=== PATIENT | male | born 1965 | race Caucasian/White ===

== ENCOUNTER 2019-09-01 16:42 | Emergency (ER) | payer SELFPAY ==
[~2019-09-01] VITALS: Ht 177.8 cm; Wt 90.3 kg
[2019-09-01 18:59] VITALS: BP 119/92
== END 2019-09-01 19:45 | disposition home or self-care (01) ==
LOC: ER 16:42
DX: Z02.83 Encounter for blood-alcohol and blood-drug test (principal)

== ENCOUNTER 2024-04-28 15:05 | Inpatient (IN) | payer MEDICAID, OTHER ==
[~2024-04-28] VITALS: Ht 177.8 cm; Wt 84.7 kg
[2024-04-28 15:38] LABS: Basophils # (auto) 0.1 10 ^3/uL (0-0.2); Basophils % (auto) 0.9 % (0.0-2.0); Eosinophils # (auto) 0.3 10 ^3/uL (0-0.8); Eosinophils % (auto) 4.9 % (0.0-7.0); Hematocrit 24.2 % (41.0-53.0); Lymphocytes # (auto) 1.1 10 ^3/uL (0.4-5.4); Lymphocytes % (auto) 15.4 % (10.0-50.0); Mean Corpuscular Hgb Conc. 33.1 g/dL (32.0-36.0); Mean Corpuscular Volume 84.6 fL (80.0-100.0); Monocytes # (auto) 0.5 10 ^3/uL (0-1.3); Monocytes % (auto) 7.6 % (0.0-12.0); Neutrophils # (auto) 4.9 10 ^3/uL (1.6-8.6); Neutrophils % (auto) 71.2 % (37.0-80.0); Nucleated Red Blood Cells % 0.1 %; Platelet Count (auto) 181 10^3/uL (140-450); Red Blood Cells 2.86 10^6/uL (4.5-5.90); Red Cell Distribution Width 14.2 % (11.8-14.3); White Blood Cell 6.9 10^3/uL (4.4-10.8)
[2024-04-28 15:52] LABS: INR 1.23 (0.9-1.15); Partial Thromboplastin Time 30.3 SEC (24.5-34.5); Prothrombin Time 12.8 sec (9.3-11.8)
[2024-04-28 16:01] LABS: Alanine Aminotransferase 21 U/L (7-40); Albumin 3.9 g/dL (3.2-4.8); Alkaline Phosphatase 88 U/L (46-116); Anion Gap 11 (5-15); Aspartate Aminotransferase 15 U/L (13-40); Bilirubin, Total 0.3 mg/dL (0.2-1.0); Blood Urea Nitrogen 71 mg/dL (9-23); Calcium 7.3 mg/dL (8.7-10.4); Carbon Dioxide 18 mmol/L (20-30); Chloride 113 mmol/L (98-107); Glucose 128 mg/dL (74-106); Magnesium 2.4 mg/dL (1.6-2.6); Potassium 5.3 mmol/L (3.5-5.1); Sodium 142 mmol/L (136-145)
[2024-04-28 16:02] LABS: Total Protein 6.2 g/dL (5.7-8.2)
[2024-04-28] MEDS ORDERED: ASPirin 81 mg TAB PO ONE (16:45)
[2024-04-28 18:39] VITALS: PULSE 69; RESP 12; O2SAT 98
[2024-04-28] MEDS: ASPirin-EC 325mg tab PO ONE (18:59)
[2024-04-28 19:49] VITALS: PULSE 71; RESP 11; O2SAT 99
[2024-04-28] MEDS: cloNIDine HCL 0.1 MG TAB PO ONE (20:27)
[2024-04-29] VITALS (7 sets, daily range): BP systolic 137–168; BP diastolic 77–100; PULSE 62–76; RESP 17–18; TEMP 98–98.2; O2SAT 99–100
[2024-04-29] MEDS ORDERED: HYDROcodone-ACET 5/325MG TAB PO PRN
[2024-04-29] MEDS ORDERED: HYDROmorphone HCL 2 MG/ML VL/or syr IV PRN
[2024-04-29] MEDS ORDERED: ONDANSETRON HCL 4 MG/2 ML VIAL IV PRN
[2024-04-29 00:46] LABS: Urine Bacteria FEW /hpf (None Seen); Urine Blood 2+ /uL (Negative); Urine Clarity Clear (Clear); Urine Color Light-Yellow (Yellow); Urine Protein, UAD 3+ (Negative); Urine Specific Gravity 1.013 (1.001-1.035); Urine Urobilinogen Normal (Negative); Urine WBC 1 /hpf (0 - 3)
[2024-04-29] MEDS: SODIUM ZIRCONIUM CYCL 10 GM PAK PO ONE (00:49)
[2024-04-29 01:23] LABS: Creatinine, Urine 67.03 mg/dL (30.0-125.0)
[2024-04-29] MEDS: SODIUM CHLOR 0.9% PF (SALINE LOCK) 10ML VIAL/SYR IV SCH (06:20)
[2024-04-29 07:54] LABS: Basophils # (auto) 0.1 10 ^3/uL (0-0.2); Basophils % (auto) 1.2 % (0.0-2.0); Eosinophils # (auto) 0.3 10 ^3/uL (0-0.8); Eosinophils % (auto) 6.4 % (0.0-7.0); Hematocrit 24.1 % (41.0-53.0); Lymphocytes # (auto) 1.4 10 ^3/uL (0.4-5.4); Lymphocytes % (auto) 25.6 % (10.0-50.0); Mean Corpuscular Hemoglobin 28.5 pg (28.0-32.0); Mean Corpuscular Hgb Conc. 33.2 g/dL (32.0-36.0); Mean Corpuscular Volume 85.6 fL (80.0-100.0); Monocytes # (auto) 0.3 10 ^3/uL (0-1.3); Monocytes % (auto) 6.6 % (0.0-12.0); Neutrophils # (auto) 3.2 10 ^3/uL (1.6-8.6); Neutrophils % (auto) 60.2 % (37.0-80.0); Nucleated Red Blood Cells % 0.1 %; Platelet Count (auto) 170 10^3/uL (140-450); Red Blood Cells 2.81 10^6/uL (4.5-5.90); Red Cell Distribution Width 14.7 % (11.8-14.3); White Blood Cell 5.3 10^3/uL (4.4-10.8)
[2024-04-29 08:09] LABS: Alanine Aminotransferase 16 U/L (7-40); Albumin 3.6 g/dL (3.2-4.8); Alkaline Phosphatase 86 U/L (46-116); Anion Gap 8 (5-15); Aspartate Aminotransferase 12 U/L (13-40); BUN/Creatinine Ratio 9.2 (10.0-20.0); Bilirubin, Total 0.3 mg/dL (0.2-1.0); Blood Urea Nitrogen 63 mg/dL (9-23); Calcium 7.7 mg/dL (8.7-10.4); Carbon Dioxide 21 mmol/L (20-30); Chloride 113 mmol/L (98-107); Glucose 70 mg/dL (74-106); Magnesium 2.4 mg/dL (1.6-2.6); Potassium 5.1 mmol/L (3.5-5.1); Sodium 142 mmol/L (136-145); Total Protein 6.1 g/dL (5.7-8.2)
[2024-04-29] MEDS: ASPirin 81 mg TAB PO ONE (12:03)
[2024-04-29] MEDS: BUMETANIDE INJECTION 12.5 MG in GIVE UN-DILUTED 0 ML IV SCH (17:47)
[2024-04-29] MEDS: ATORVASTATIN 20 MG TAB PO SCH (21:34)
[2024-04-29] MEDS: ACETAMINOPHEN 325 MG TAB PO PRN (23:44)
[2024-04-30] VITALS (8 sets, daily range): BP systolic 140–159; BP diastolic 76–91; PULSE 57–70; RESP 17–22; TEMP 97.5–98.4; O2SAT 99–100
[2024-04-30 07:07] LABS: Basophils # (auto) 0.1 10 ^3/uL (0-0.2); Eosinophils # (auto) 0.3 10 ^3/uL (0-0.8); Hematocrit 25.2 % (41.0-53.0); Hemoglobin 8.6 g/dL (13.5-17.5); Lymphocytes # (auto) 0.9 10 ^3/uL (0.4-5.4); Lymphocytes % (auto) 15.5 % (10.0-50.0); Mean Corpuscular Hgb Conc. 34.1 g/dL (32.0-36.0); Mean Corpuscular Volume 85.2 fL (80.0-100.0); Monocytes # (auto) 0.4 10 ^3/uL (0-1.3); Monocytes % (auto) 6.5 % (0.0-12.0); Neutrophils # (auto) 4.3 10 ^3/uL (1.6-8.6); Platelet Count (auto) 154 10^3/uL (140-450); Red Blood Cells 2.95 10^6/uL (4.5-5.90); Red Cell Distribution Width 14.4 % (11.8-14.3)
[2024-04-30 07:18] LABS: Alanine Aminotransferase 18 U/L (7-40); Albumin 3.8 g/dL (3.2-4.8); Alkaline Phosphatase 90 U/L (46-116); Anion Gap 11 (5-15); Aspartate Aminotransferase 11 U/L (13-40); BUN/Creatinine Ratio 9.4 (10.0-20.0); Blood Urea Nitrogen 68 mg/dL (9-23); Calcium 7.8 mg/dL (8.7-10.4); Carbon Dioxide 20 mmol/L (20-30); Chloride 113 mmol/L (98-107); Glucose 80 mg/dL (74-106); Magnesium 2.5 mg/dL (1.6-2.6); Potassium 4.9 mmol/L (3.5-5.1); Sodium 144 mmol/L (136-145)
[2024-04-30 07:19] LABS: Bilirubin, Total 0.3 mg/dL (0.2-1.0); Total Protein 6.5 g/dL (5.7-8.2)
[2024-04-30 08:36] LABS: Hepatitis B Surface Antibody Negative (Negative)
[2024-04-30 08:48] LABS: Hepatitis B Surface Antigen Negative (Negative)
[2024-04-30 09:09] LABS: Hepatitis B Core IgM Negative
[2024-04-30] MEDS: ASPirin 81 mg TAB PO SCH (09:10)
[2024-04-30] MEDS: cloNIDine HCL 0.1 MG TAB PO PRN (09:54)
[2024-04-30] MEDS: CALCIUM ACETATE 667 MG CAP PO SCH (18:27)
[2024-05-01] VITALS (12 sets, daily range): BP systolic 150–176; BP diastolic 78–100; PULSE 64–70; RESP 11–20; TEMP 97.3–98; O2SAT 93–100
[2024-05-01 06:57] LABS: Basophils # (auto) 0.1 10 ^3/uL (0-0.2); Eosinophils # (auto) 0.3 10 ^3/uL (0-0.8); Eosinophils % (auto) 5.5 % (0.0-7.0); Hematocrit 23.8 % (41.0-53.0); Lymphocytes # (auto) 0.9 10 ^3/uL (0.4-5.4); Mean Corpuscular Hemoglobin 28.4 pg (28.0-32.0); Mean Corpuscular Hgb Conc. 33.6 g/dL (32.0-36.0); Mean Corpuscular Volume 84.5 fL (80.0-100.0); Monocytes # (auto) 0.4 10 ^3/uL (0-1.3); Monocytes % (auto) 7.5 % (0.0-12.0); Neutrophils # (auto) 3.5 10 ^3/uL (1.6-8.6); Platelet Count (auto) 165 10^3/uL (140-450); Red Blood Cells 2.81 10^6/uL (4.5-5.90); Red Cell Distribution Width 14.6 % (11.8-14.3); White Blood Cell 5.1 10^3/uL (4.4-10.8)
[2024-05-01 07:20] LABS: % Iron Saturation 17.5 % (20-55)
[2024-05-01 07:21] LABS: Alanine Aminotransferase 16 U/L (7-40); Albumin 3.6 g/dL (3.2-4.8); Alkaline Phosphatase 82 U/L (46-116); Anion Gap 10 (5-15); Aspartate Aminotransferase 8 U/L (13-40); BUN/Creatinine Ratio 9.7 (10.0-20.0); Bilirubin, Total 0.3 mg/dL (0.2-1.0); Blood Urea Nitrogen 70 mg/dL (9-23); Calcium 7.8 mg/dL (8.7-10.4); Carbon Dioxide 22 mmol/L (20-30); Chloride 113 mmol/L (98-107); Glucose 90 mg/dL (74-106); Magnesium 2.4 mg/dL (1.6-2.6); Potassium 4.6 mmol/L (3.5-5.1); Sodium 145 mmol/L (136-145)
[2024-05-01] MEDS: BUMETANIDE INJECTION 12.5 MG in GIVE UN-DILUTED 0 ML IV SCH (09:00)
[2024-05-01] MEDS: HEPARIN SODIUM (PORCINE) 5000 UNITS/ML 1ML VIAL ONE (10:20)
[2024-05-01] MEDS: HEPARIN IN NS 1000Units/500mL 1,500 ML ONE (10:50)
[2024-05-01] MEDS: MIDAZOLAM HCL 2MG/2ML 2ml VIAL (1mg/ml) ONE (10:50)
[2024-05-01] MEDS: LIDOCAINE 2%HCL (LOCAL ANESTH.) INJ 20ML MDV ONE (10:50)
[2024-05-01] MEDS: IODIXANOL 320MG/ML 100ML BTL IV ONE (10:50)
[2024-05-01] MEDS: fentaNYL CITRATE 100 MCG/2 ML VL ONE (10:50)
[2024-05-01] MEDS: ceFAZolin 1GM/50ML 50 ML IV ONE (10:51)
[2024-05-01] MEDS: CALCIUM ACETATE 667 MG CAP PO SCH (12:59)
[2024-05-01] MEDS: IRON SUCROSE COMPLEX 100 ML IV SCH (13:00)
[2024-05-01] MEDS: SODIUM CHL 0.9% 1000 ML BAG XX ONE (15:00)
[2024-05-01] MEDS: EPOETIN ALFA-EPBX 4,000 UNIT/ML VIAL SC ONE (21:11)
[2024-05-02] VITALS (7 sets, daily range): BP systolic 131–168; BP diastolic 82–91; PULSE 60–65; RESP 18–21; TEMP 97.4–98.7; O2SAT 90–98
[2024-05-02] MEDS: DOCUSATE SOD 100 MG CAP PO PRN (05:20)
[2024-05-02 06:44] LABS: Alanine Aminotransferase 17 U/L (7-40); Albumin 3.9 g/dL (3.2-4.8); Alkaline Phosphatase 89 U/L (46-116); Anion Gap 10 (5-15); Aspartate Aminotransferase 15 U/L (13-40); BUN/Creatinine Ratio 8.3 (10.0-20.0); Calcium 8.7 mg/dL (8.7-10.4); Carbon Dioxide 24 mmol/L (20-30); Chloride 109 mmol/L (98-107); Glucose 116 mg/dL (74-106); Magnesium 2.2 mg/dL (1.6-2.6); Potassium 4.3 mmol/L (3.5-5.1); Sodium 143 mmol/L (136-145)
[2024-05-02 06:45] LABS: Bilirubin, Total 0.4 mg/dL (0.2-1.0); Total Protein 6.4 g/dL (5.7-8.2)
[2024-05-02 06:46] LABS: Blood Urea Nitrogen 44 mg/dL (9-23)
[2024-05-02 07:01] LABS: Basophils # (auto) 0.1 10 ^3/uL (0-0.2); Basophils % (auto) 1.1 % (0.0-2.0); Eosinophils # (auto) 0.4 10 ^3/uL (0-0.8); Eosinophils % (auto) 6.2 % (0.0-7.0); Hematocrit 26.6 % (41.0-53.0); Hemoglobin 9.1 g/dL (13.5-17.5); Lymphocytes # (auto) 0.9 10 ^3/uL (0.4-5.4); Lymphocytes % (auto) 15.4 % (10.0-50.0); Mean Corpuscular Hemoglobin 28.5 pg (28.0-32.0); Mean Corpuscular Hgb Conc. 34.1 g/dL (32.0-36.0); Mean Corpuscular Volume 83.5 fL (80.0-100.0); Monocytes # (auto) 0.5 10 ^3/uL (0-1.3); Monocytes % (auto) 8.1 % (0.0-12.0); Neutrophils % (auto) 69.2 % (37.0-80.0); Platelet Count (auto) 125 10^3/uL (140-450); Red Blood Cells 3.19 10^6/uL (4.5-5.90); Red Cell Distribution Width 14.5 % (11.8-14.3); White Blood Cell 5.8 10^3/uL (4.4-10.8)
[2024-05-02] MEDS: cloNIDine HCL 0.1 MG TAB PO PRN (18:33)
[2024-05-03 05:00] VITALS: BP 168/89; PULSE 65; RESP 16; TEMP 97.8; O2SAT 99
[2024-05-03 06:16] LABS: Alanine Aminotransferase 19 U/L (7-40); Alkaline Phosphatase 92 U/L (46-116); Anion Gap 7 (5-15); BUN/Creatinine Ratio 7.8 (10.0-20.0); Blood Urea Nitrogen 46 mg/dL (9-23); Carbon Dioxide 29 mmol/L (20-30); Chloride 107 mmol/L (98-107); Glucose 115 mg/dL (74-106); Magnesium 2.1 mg/dL (1.6-2.6); Potassium 4.3 mmol/L (3.5-5.1); Sodium 143 mmol/L (136-145)
[2024-05-03 06:17] LABS: Albumin 3.8 g/dL (3.2-4.8); Aspartate Aminotransferase 13 U/L (13-40); Bilirubin, Total 0.4 mg/dL (0.2-1.0); Total Protein 6.5 g/dL (5.7-8.2)
[2024-05-03 06:22] LABS: Basophils # (auto) 0.1 10 ^3/uL (0-0.2); Eosinophils # (auto) 0.4 10 ^3/uL (0-0.8); Eosinophils % (auto) 5.6 % (0.0-7.0); Hematocrit 28.4 % (41.0-53.0); Hemoglobin 9.7 g/dL (13.5-17.5); Lymphocytes # (auto) 1.2 10 ^3/uL (0.4-5.4); Lymphocytes % (auto) 16.5 % (10.0-50.0); Mean Corpuscular Hemoglobin 28.6 pg (28.0-32.0); Mean Corpuscular Hgb Conc. 34.2 g/dL (32.0-36.0); Mean Corpuscular Volume 83.9 fL (80.0-100.0); Monocytes # (auto) 0.5 10 ^3/uL (0-1.3); Monocytes % (auto) 6.8 % (0.0-12.0); Neutrophils # (auto) 4.9 10 ^3/uL (1.6-8.6); Neutrophils % (auto) 70.1 % (37.0-80.0); Nucleated Red Blood Cells % 0.1 %; Platelet Count (auto) 177 10^3/uL (140-450); Red Blood Cells 3.39 10^6/uL (4.5-5.90); Red Cell Distribution Width 14.4 % (11.8-14.3)
[2024-05-03] MEDS: SODIUM CHL 0.9% 1000 ML BAG XX ONE (07:00)
[2024-05-03 08:00] VITALS: PULSE 65; RESP 18; O2SAT 99
[2024-05-03 09:02] VITALS: BP 169/87; PULSE 65; RESP 16; TEMP 98.3; O2SAT 99
[2024-05-03 09:39] LABS: Hepatitis B Surface Antigen Negative (Negative)
[2024-05-03 10:00] LABS: Hepatitis B Core IgM Negative
[2024-05-03 10:01] LABS: Hepatitis C Antibody Negative (Negative)
[2024-05-03 12:14] VITALS: BP 159/87; PULSE 60; RESP 16; TEMP 97.4; O2SAT 99
[2024-05-03] MEDS ORDERED: ATOR-507 PO (13:04)
[2024-05-03] MEDS ORDERED: ASPI-628 PO (13:04)
[2024-05-03] MEDS ORDERED: CALC10TA PO (13:04)
[2024-05-03 16:29] LABS: Hepatitis A Ab IgM Negative
[2024-05-03] MEDS ORDERED: EPOETIN ALFA-EPBX 10,000 UNIT/1ML VIAL SC ONE (21:00)
== END 2024-05-03 16:26 | disposition home or self-care (01) | DRG 194 ==
LOC: EDBD 15:05 → ER 15:05 → TELE 04-29 → TELE-WESTW 04-29 02:06
PROVIDERS: ADMIT Internal Medicine; ATTEND Family Medicine
PROC: 0JH63XZ Insertion of Tunneled Vascular Access Device into Chest Subcutaneous Tissue and Fascia, Percutaneous Approach (ICD-10-PCS; principal; 2024-05-01)
PROC: 02H633Z Insertion of Infusion Device into Right Atrium, Percutaneous Approach (ICD-10-PCS; 2024-05-01)
PROC: B5181ZA Fluoroscopy of Superior Vena Cava using Low Osmolar Contrast, Guidance (ICD-10-PCS; 2024-05-01)
PROC: B548ZZA Ultrasonography of Superior Vena Cava, Guidance (ICD-10-PCS; 2024-05-01)
PROC: 5A1D70Z Performance of Urinary Filtration, Intermittent, Less than 6 Hours Per Day (ICD-10-PCS; 2024-05-01)
DX: I13.2 Hypertensive heart and chronic kidney disease with heart failure and with stage 5 chronic kidney disease, or end stage renal disease (principal); J96.01 Acute respiratory failure with hypoxia; N17.9 Acute kidney failure, unspecified; D63.1 Anemia in chronic kidney disease; N13.30 Unspecified hydronephrosis; E83.39 Other disorders of phosphorus metabolism; N18.6 End stage renal disease; E11.22 Type 2 diabetes mellitus with diabetic chronic kidney disease; E11.40 Type 2 diabetes mellitus with diabetic neuropathy, unspecified; E87.5 Hyperkalemia; I20.0 Unstable angina; E11.51 Type 2 diabetes mellitus with diabetic peripheral angiopathy without gangrene; D50.9 Iron deficiency anemia, unspecified; I50.33 Acute on chronic diastolic (congestive) heart failure; I45.10 Unspecified right bundle-branch block; Z89.512 Acquired absence of left leg below knee; Z82.3 Family history of stroke; Z99.2 Dependence on renal dialysis; Z91.199 Patient's noncompliance with other medical treatment and regimen due to unspecified reason; Z79.4 Long term (current) use of insulin
CPT/HCPCS: 36415; 36558; 71045; 76775; 77001; 80053; 80074; 81001; 82306; 82570; 82962; 83540; 83550; 83735; 83880; 83970; 84100; 84300; 84484; 85025; 85610; 85730; 86703; 86705; 86706; 86803; 87340; 90935; 93005; 93306; 97163; 99152; G0378; J1642; J1756; J2250; Q9967